=== PATIENT | male | born 1990 | race Caucasian/White ===

== ENCOUNTER 2019-10-21 02:46 | Emergency (ER) | payer MEDICAID ==
[~2019-10-21] VITALS: Ht 167.6 cm; Wt 67.0 kg
[2019-10-21 02:49] VITALS: BP 121/92
[2019-10-21] MEDS ORDERED: DIPH,PERTUSS(ACELL),TET VAC/PF 0.5 ML IM-VACC ONE ×2 (03:12→03:30)
== END 2019-10-21 03:26 | disposition home or self-care (01) ==
LOC: ED 03:23
DX: S61.032A Puncture wound without foreign body of left thumb without damage to nail, initial encounter (principal); S60.312A Abrasion of left thumb, initial encounter; X58.XXXA Exposure to other specified factors, initial encounter; Y93.89 Activity, other specified; Y92.89 Other specified places as the place of occurrence of the external cause; Y99.8 Other external cause status
CPT/HCPCS: 90471; 90715; 99283

== ENCOUNTER 2020-03-24 12:58 | Emergency (ER) | payer MEDICAID ==
[~2020-03-24] VITALS: Ht 170.2 cm; Wt 80.0 kg
[2020-03-24 13:13] VITALS: BP 113/78
--- NOTE | 2020-03-24 13:29 | NUR ---
C/O RIGHT LOWER TOOTH PAIN X2+ WEEKS, PT STATES HE TOOK AMOXICILLIN 2 WEEKS AGO.
[2020-03-24] MEDS ORDERED: OXYcodone/APAP 5/325MG TABLET ONE (13:55)
[2020-03-24] MEDS ORDERED: OXYcodone/APAP 5/325MG TABLET PO ONE (14:00)
== END 2020-03-24 14:20 | disposition home or self-care (01) ==
LOC: ED 14:12
DX: K02.9 Dental caries, unspecified (principal); F17.210 Nicotine dependence, cigarettes, uncomplicated; Z91.19 Patient's noncompliance with other medical treatment and regimen
CPT/HCPCS: 99283

== ENCOUNTER 2020-09-19 21:17 | Emergency (ER) | payer MEDICAID ==
[~2020-09-19] VITALS: Ht 167.6 cm; Wt 73.0 kg
[2020-09-19 21:20] VITALS: BP 140/84
[2020-09-19] MEDS ORDERED: PENICILLIN VK 500MG TABLET ONE (21:52)
[2020-09-19] MEDS ORDERED: IBUPROFEN 600 MG TABLET ONE (21:52)
[2020-09-19] MEDS ORDERED: PENICILLIN VK 500MG TABLET PO ONE (22:00)
[2020-09-19] MEDS ORDERED: IBUPROFEN 600 MG TABLET PO ONE (22:00)
== END 2020-09-19 22:26 | disposition home or self-care (01) ==
LOC: ED 21:55
DX: K08.89 Other specified disorders of teeth and supporting structures (principal); F17.210 Nicotine dependence, cigarettes, uncomplicated
CPT/HCPCS: 99406